=== PATIENT | male | born 1975 | race Two or more races ===

== ENCOUNTER 2020-05-24 14:49 | Outpatient (CLI) | payer OTHER ==
[~2020-05-24 14:49] MED LIST: CLARINEX2.5 MG/TAB; NASONEX17 GM
== END 2020-05-24 14:51 | disposition home or self-care (01) ==
LOC: PPH VACUNA 14:49
DX: Z23 Encounter for immunization (principal)

== ENCOUNTER → 2020-06-17 15:32 | Outpatient (CLI) | payer OTHER | END | disposition home or self-care (01) | LOC: PPH VACUNA 15:32 | DX: Z23 Encounter for immunization (principal) ==